=== PATIENT | female | born 1970 | race Caucasian/White ===

== ENCOUNTER → 2019-04-22 | Outpatient (CLI) | payer BC ==
[~2019-04-22] MED LIST: ACET325 PO; Advil200 M1; DIPHEDRYL25 M1; DOXY100 PO; Excedrin Extra1 EACH; HYDACE10B PO; PREG100 PO; PREG50 PO; PROP80ER PO; RXALBOI INH; TOPI100 PO; TRAZ50 PO; ZOLP10 PO
[2019-04-25 15:06] LABS: HPV 16 Negative (Negative); HPV 18 Negative (Negative); HPV OTHER HR TYPES Negative (Negative)
== END | disposition home or self-care (01) ==
LOC: LAB SHORT 08:05 → LAB 08:05
PROVIDERS: Obstetrics & Gynecology Gynecology
DX: Z12.4 Encounter for screening for malignant neoplasm of cervix (principal)
CPT/HCPCS: 87624; G0123

== ENCOUNTER 2024-12-15 17:19 | Inpatient (IN) | payer BC ==
[~2024-12-15] VITALS: Ht 165.1 cm; Wt 96.9 kg
[~2024-12-15 17:19] MED LIST changes: +BENADRYL25 M1 PO; -DIPHEDRYL25 M1
[2024-12-15 18:00] LABS: BASOPHILS ABSOLUTE AUTO 0.04 K/mm3 (0.00-0.23); BASOPHILS PERCENT AUTO 1 % (0-2); EOSINOPHILS ABSOLUTE AUTO 0.12 K/mm3 (0.00-0.68); EOSINOPHILS PERCENT AUTO 2 % (0-6); Hematocrit 33.6 % (33.0-51.0); Hemoglobin 11.2 g/dL (11.5-16.0); IMMATURE GRAN ABSOLUTE AUTO 0.02 K/mm3 (0.00-0.10); IMMATURE GRAN PERCENT AUTO 0 % (0-1); LYMPHOCYTES ABSOLUTE AUTO 2.01 K/mm3 (0.84-5.20); LYMPHOCYTES PERCENT AUTO 28 % (21-46); MONOCYTES ABSOLUTE AUTO 0.51 K/mm3 (0.16-1.47); MONOCYTES PERCENT AUTO 7 % (4-13); Mean Corpuscular HGB Conc 33.3 g/dL (31.5-36.5); Mean Corpuscular Volume 80 fL (80-100); NEUTROPHILS ABSOLUTE AUTO 4.37 K/mm3 (1.96-9.15); NEUTROPHILS PERCENT AUTO 62 % (41-73); NRBC ABSOLUTE 0.00 K/mm3 (0.00-0.02); NRBC Auto 0.0 /100 WBC (0.0-0.2); Platelet Count 363 K/mm3 (150-400); RDW Coefficient Variation 12.7 % (11.7-14.2); RDW Standard Deviation 36.2 fL (35.1-46.3)
[2024-12-15] MEDS ORDERED: Diltiazem HCl 5 MG / ML 5ML Vial IV ONE ×2 (18:10→18:30)
[2024-12-15 18:27] LABS: Thyroid Stimulating Hormone <0.005 uIU/mL (0.360-4.800)
[2024-12-15 18:28] LABS: Alanine Aminotransfer (ALT/SGP 44 U/L (12-78); Albumin, Blood 3.4 g/dL (3.4-5.0); Albumin/Globulin Ratio 1.0 (0.8-1.8); Anion Gap 8 mmol/L (3-11); Aspartate Aminotrans (AST/SGOT 27 U/L (12-37); Bilirubin, Total 0.3 mg/dL (0.1-1.0); Blood Urea Nitrogen 18 mg/dL (8-24); CO2, Blood 25 mmol/L (21-32); Calcium, Blood 10.4 mg/dL (8.5-10.1); Chloride, Blood 109 mmol/L (98-108); Creatinine, Blood 0.59 mg/dL (0.40-1.00); Globulin, Blood 3.5 g/dL (2.2-4.0); Glucose, Blood 118 mg/dL (70-99); Potassium, Blood 3.4 mmol/L (3.5-5.5); Sodium, Blood 139 mmol/L (136-145); Total Protein, Blood 6.9 g/dL (6.4-8.2)
[2024-12-15] MEDS ORDERED: Metoprolol Tartrate 1 MG/ML 5 ML VIAL IV PRN ×3 (20:05→23:55)
[2024-12-15] MEDS ORDERED: NS 1,000 ML IV SCH (21:00)
[2024-12-15] MEDS ORDERED: Ondansetron HCl 2 MG / ML 2ML Vial IV PRN (21:00)
[2024-12-15 22:25] LABS: Magnesium, Blood 1.7 mg/dL (1.6-2.4)
[2024-12-16] VITALS (8 sets, daily range): BP systolic 117–137; BP diastolic 72–94
[2024-12-16] MEDS ORDERED: KLOR-CON M1010 MEQ PO (01:13)
[2024-12-16] MEDS ORDERED: AMLO5 PO (01:14)
[2024-12-16] MEDS ORDERED: LOSA50 PO (01:14)
[2024-12-16] MEDS ORDERED: HYDCHL25 PO (01:18)
[2024-12-16] MEDS ORDERED: IBUP400 PO (01:19)
[2024-12-16 05:14] LABS: Anion Gap 9.0 mmol/L (3-11); Blood Urea Nitrogen 17.0 mg/dL (8-24); CO2, Blood 24.0 mmol/L (21-32); Calcium, Blood 9.8 mg/dL (8.5-10.1); Chloride, Blood 109.0 mmol/L (98-108); Creatinine, Blood 0.47 mg/dL (0.40-1.00); Glucose, Blood 119.0 mg/dL (70-99); Magnesium, Blood 1.7 mg/dL (1.6-2.4); Potassium, Blood 4.0 mmol/L (3.5-5.5); Sodium, Blood 138.0 mmol/L (136-145)
[2024-12-16] MEDS ORDERED: Diltiazem HCl 5 MG / ML 5ML Vial IV ONE (11:15)
--- NOTE | 2024-12-16 17:54 | NUR ---
SHIFT SUMMARY; ASSUMED CARE AT 0700. A/A/OX4. INDEPENDANT IN ROOM. AFIB WITH RATE 115-140 INITIALLY DURING SHIFT. CARDIZEM DRIP STARTED, CURRENTLY AT 5ML/HR WITH HR 85-100, DENIES CP OR SOB. FAMILY AT BEDSIDE DURING SHIFT. BP STABLE. WILL CONTINUE TO MONITOR AND TREAT UNTIL REPORT GIVEN TO NOC SHIFT RN.
--- NOTE | 2024-12-16 19:46 | NUR ---
ASSUMPTION OF CARE PT A&O X4, CALM, COOPERATIVE TO CARE. PT IN AFIB, HR IN THE HIGH 90'S-100'S WITH REST. WITH ACTIVITY/TALKING HR INCREASES TO THE 110'S. DILT GTT INFUSING AT 10ML/HR. SHE DENIES ANY CP/PRESSURE, NUMB/TINGLING, SBP STABLE. SPO2 >92% ON RA. SHE DENIES ANY SOB AT THIS TIME. PT DENIES ANY QUESTIONS OR CONCERNS AT THIS TIME. CALL LIGHT IN REACH.
[2024-12-17 03:26] VITALS: BP 141/92
--- NOTE | 2024-12-17 05:01 | NUR ---
SHIFT SUMMARY PT A&O X4, CALM, COOPERATIVE TO CARE. HR RANGING FROM THE 90'S-110'S. SHE DENIES ANY CP/PRESSURE, NUMB/TINGLING. CARDIZEM GTT AT 10ML/HR. SPO2 >92% ON RA, SHE DENIES ANY SOB. NO ACUTE CHANGES T/O NIGHT. PT RESTING IN BED AT THIS TIME. CALL ZACH QUINONES. WILL MONITOR PT AND REPORT TO ONCOMING RN.
[2024-12-17 07:17] VITALS: BP 138/69
[2024-12-17 11:56] VITALS: BP 141/74
[2024-12-17 13:51] VITALS: BP 130/84
[2024-12-17 16:09] VITALS: BP 127/70
--- NOTE | 2024-12-17 17:00 | NUR ---
PT IS A&Ox4 AND ABLE TO MAKE NEEDS KNOWN. SHE IS ON RA W/O2 SATS > 92%. SHE IS INDEPENDENT W/AMBULATION. SHE HAS DILTIAZEM GTT RUNNING @ 5MG/HR. NO NEEDS OR CONCERNS NOTED @ THIS TIME. BED IN LOW POSITION, CALL LIGHT, AND PERSONAL BELONGINGS IN REACH.
[2024-12-17 19:57] VITALS: BP 132/83
[2024-12-17 23:20] LABS: TSH RECEPTOR ANTIBODY 26.5 IU/L (<=1.75)
[2024-12-18] VITALS (8 sets, daily range): BP systolic 120–152; BP diastolic 69–93
[2024-12-18 04:09] LABS: BASOPHILS ABSOLUTE AUTO 0.03 K/mm3 (0.00-0.23); BASOPHILS PERCENT AUTO 0 % (0-2); EOSINOPHILS ABSOLUTE AUTO 0.18 K/mm3 (0.00-0.68); EOSINOPHILS PERCENT AUTO 2 % (0-6); Hematocrit 29.9 % (33.0-51.0); Hemoglobin 9.9 g/dL (11.5-16.0); IMMATURE GRAN ABSOLUTE AUTO 0.02 K/mm3 (0.00-0.10); IMMATURE GRAN PERCENT AUTO 0 % (0-1); LYMPHOCYTES ABSOLUTE AUTO 1.97 K/mm3 (0.84-5.20); LYMPHOCYTES PERCENT AUTO 27 % (21-46); MONOCYTES ABSOLUTE AUTO 0.61 K/mm3 (0.16-1.47); MONOCYTES PERCENT AUTO 8 % (4-13); Mean Corpuscular HGB Conc 33.1 g/dL (31.5-36.5); Mean Corpuscular Volume 81 fL (80-100); NEUTROPHILS ABSOLUTE AUTO 4.56 K/mm3 (1.96-9.15); NEUTROPHILS PERCENT AUTO 62 % (41-73); NRBC ABSOLUTE 0.00 K/mm3 (0.00-0.02); NRBC Auto 0.0 /100 WBC (0.0-0.2); Platelet Count 309 K/mm3 (150-400); RDW Coefficient Variation 12.9 % (11.7-14.2); RDW Standard Deviation 37.5 fL (35.1-46.3)
[2024-12-18 04:40] LABS: Anion Gap 10.0 mmol/L (3-11); Blood Urea Nitrogen 17.0 mg/dL (8-24); CO2, Blood 25.0 mmol/L (21-32); Calcium, Blood 9.9 mg/dL (8.5-10.1); Chloride, Blood 108.0 mmol/L (98-108); Creatinine, Blood 0.49 mg/dL (0.40-1.00); Glucose, Blood 98.0 mg/dL (70-99); Magnesium, Blood 1.9 mg/dL (1.6-2.4); Potassium, Blood 3.6 mmol/L (3.5-5.5); Sodium, Blood 139.0 mmol/L (136-145)
--- NOTE | 2024-12-18 05:08 | NUR ---
SHIFT SUMMARY: PATIENT IS A&OX4. TELE SHOWS AFIB WITH HR BETWEEN 90'S-LOW 100'S BPM WHEN AT REST. HOWEVER, HR WOULD INCREASE TO 130'S BPM WITH AMBULATION, BUT WOULD COME BACK DOWN TO 90'S- LOW 100'S BPM ONCE AT REST AGAIN. OTHER VITAL SIGNS ARE STABLE AT THIS TIME AND IS CURRENTLY ON RA WITH SPO2 >90%. CARDIZEM GTT RUNNING AT 5ML/HR. PATIENT DENIES CHEST PAIN/PALPATATIONS/PRESSURE THROUGHOUT SHIFT, EVEN WHEN AMBULATING AND HR INCREASES. PATIENT REPORTED HAVING A "HEADACHE" PAIN WHICH WAS MANAGED WITH TYLENOL PER JUN. PATIENT CALLS APPROPRIATELY WITH CALL LIGHT IN REACH.
[2024-12-18] MEDS ORDERED: Potassium Chloride 10 Meq Tablet SA PO ONE (11:05)
--- NOTE | 2024-12-18 17:36 | NUR ---
SHIFT SUMMARY PT ALERT, ORIENTED X4; CALM AND COOPERATIVE WITH CARE, PT RESTING IN BED, UP TO BATHROOM IND. PT REPORTS HEADACHE, MEDICATED PER ORDERS. PT DENIES CHEST PAIN/PRESSURE, SOB, NAUSEA, DIZZINESS AND NUMB/TINGLING. TELE AFIB 90-110, ATTEMPTED TO TITRATE OFF CARDIZE, THIS AFTERNOON HR TRENDING UP, RESTARTED AT 5. SPO2 >90% ON RA, BREATHING EVEN AND UNLABORED. ABD SOFT, NONTENDER, +BT. EDEMA NOTED TO BLE; DISCUSSED WITH MD; NEW ORDERS ENTERED. OTHER VSS. CALL LIGHT WITHIN REACH.
[2024-12-19 03:37] VITALS: BP 135/73
[2024-12-19 03:55] LABS: Hematocrit 29.7 % (33.0-51.0); Hemoglobin 9.9 g/dL (11.5-16.0)
--- NOTE | 2024-12-19 05:00 | NUR ---
SHIFT SUMMARY PT A&OX4. SP02>90% ON RA. TELEMETRY SHOWS AFIB, HR 80'S-120'S. CARDIZEM CURRENTLY INFUSING AT 5 MLS/HR. PT DENIES CP/PRESSURE. MILD EDEMA BLE. PT EXPRESSED HOPING TO DC HOME TODAY. C/O OF MIGRAINE, MEDICATED W/ TYLENOL PER EMAR AND ICE PACK APPLIED. UP TO BATHROOM INDEPENDENTLY TO VOID. PT SLEPT MOST OF NIGHT. CALL LIGHT IN REACH.
[2024-12-19 08:00] VITALS: BP 142/84
[2024-12-19] MEDS ORDERED: Potassium Chloride 10 Meq Tablet SA PO SCH (09:00)
[2024-12-19 11:15] VITALS: BP 142/84
[2024-12-19] MEDS ORDERED: METHI10 PO (13:55)
[2024-12-19] MEDS ORDERED: METO50 PO (13:55)
[2024-12-19] MEDS ORDERED: XARELTO20 MG PO (13:56)
--- NOTE | 2024-12-19 14:24 | NUR ---
DISCHARGE SUMMARY: PT D/C'd AT 1420 HOME. PT VSS, PT GIVEN DISCHARGE INSTRUCTIONS REGARDING MEDICATIONS, DIAGNOSIS, AND FOLLOW-UP APPOITMENTS. MEDICATIONS FAXED TO [facility], ALL BELONGINGS WITH PT.
== END 2024-12-19 14:23 | disposition home or self-care (01) | DRG 310 ==
LOC: ER 17:19 → PCU 17:20 → ERHOLD 17:20 → PCU 12-16 00:40
PROVIDERS: Family Medicine; Nurse Practitioner Acute Care; Student in an Organized Health Care Education/Training Program; ADMIT Internal Medicine
DX: I48.91 Unspecified atrial fibrillation (principal); E05.90 Thyrotoxicosis, unspecified without thyrotoxic crisis or storm; I10 Essential (primary) hypertension; E78.5 Hyperlipidemia, unspecified; G47.00 Insomnia, unspecified; E87.6 Hypokalemia; G43.909 Migraine, unspecified, not intractable, without status migrainosus; E66.01 Morbid (severe) obesity due to excess calories; D64.9 Anemia, unspecified; Z79.82 Long term (current) use of aspirin; Z68.35 Body mass index [BMI] 35.0-35.9, adult
CPT/HCPCS: 36415; 71045; 76536; 80048; 80053; 83520; 83735; 83880; 84439; 84443; 84481; 84484; 85014; 85018; 85025; 93005; 93010; 93306; 96365; 96366; 96374; 96375; 96376; 99285-25; A9270; G0378; J7030